=== PATIENT | female | born 1990 | race Hispanic/Latino ===

== ENCOUNTER 2017-06-14 06:46 | Inpatient (IN) | payer MEDICAID, OTHER ==
[2017-06-14 07:26] VITALS: BMI 49.3
[2017-06-14] MEDS ORDERED: Lactated Ringer's 1,000 ML IV ONE (08:00)
[2017-06-14 09:13] LABS: BASO % 0.3 % (0.0-2.0); EOS % 0.5 % (0.0-4.0); HEMATOCRIT 40.2 % (34.0-47.0); LYMPH # 2.1 K/uL (1.0-4.3); LYMPH % 23.8 % (20.0-40.0); MEAN CORPUSCULAR HGB CONC 32.8 g/dL (33.0-37.0); MEAN PLATELET VOLUME 8.4 fl (7.2-11.7); MONO # 0.7 K/uL (0.0-0.8); MONO % 7.7 % (0.0-10.0); NEUT # 5.9 K/uL (1.8-7.0); NEUT % 67.7 % (50.0-75.0); NRBC % 0.1 % (0.0-0.0); RED CELL DISTRIBUTION WIDTH 12.8 % (11.5-14.5); WHITE BLOOD COUNT 8.7 K/uL (4.8-10.8)
[2017-06-14 09:21] LABS: MEAN CELL VOLUME 94.6 fl (81.0-99.0)
[2017-06-14] MEDS: Lactated Ringer's 1,000 ML IV SCH ×2 (09:40→16:25)
[2017-06-14] MEDS ORDERED: Lidocaine 2% Inj (20ml) ONE (15:05)
[2017-06-14] MEDS ORDERED: Lidocaine 2% PF (10 ml) Amp ONE (15:07)
[2017-06-14] MEDS ORDERED: Nalbuphine 20 mg/ml Inj (1 ml) IVP PRN (15:59)
[2017-06-14] MEDS ORDERED: Oxytocin 30 units/LR 500ML 30 U/500 ML BAG IV ONE ×2 (17:49→19:33)
[2017-06-14] MEDS ORDERED: Oxycodone/Acetaminophen 5/325 mg Tab PO PRN ×2 (18:32)
--- NOTE | 2017-06-14 19:05 | OBADHP ---
Datetime: 06/14/2017 18:43 Admit Comment, IP Provider: iup term srom in labor uneventful course admit for delivery Pelvic Type - PN: Adequate Extremities - PN: Normal Abdomen - PN: Normal Back - PN: Normal Breast - PN: Normal Lungs - PN: Normal Heart - PN: Normal Thyroid - PN: Normal Neurologic - PN: Normal HEENT - PN: Normal General - PN: Normal Presentation-Admit: Vertex FHR - Baseline A Provider: 140 Gestation - Est Wks by US: 38+ Pool Provider: Positive IP Chief Complaint: Uterine contractions NICHD Variability Prov Fetus A: Moderate 6-25bpm NICHD Accel Fetus A IP Provider: 10X10 FHR Category Provider Fetus A: Category I NICHD Decel Fetus A IP Provider: None Dilatation, Provider: 3-4 Effacement, Provider: 75% Station, Provider: -1 Genitourinary Exam: Normal DTRs - PN: Normal EGA AdmitDate IP: 38.6 IP Adm Impression: Term, intrauterine ; Ruptured Membranes IP Admit Plan: Admit to unit; Initiate labor protocol
[2017-06-15] MEDS ORDERED: Oxycodone/Acetaminophen 5/325 mg Tab PO PRN ×2 (04:14)
[2017-06-15 07:46] LABS: HEMATOCRIT 34.2 % (34.0-47.0); MEAN CELL VOLUME 94.6 fl (81.0-99.0); MEAN CORPUSCULAR HEMOGLOBIN 30.9 pg (27.0-31.0); MEAN CORPUSCULAR HGB CONC 32.6 g/dL (33.0-37.0); RED CELL DISTRIBUTION WIDTH 12.7 % (11.5-14.5); WHITE BLOOD COUNT 13.4 K/uL (4.8-10.8)
[2017-06-15] MEDS: Prenatal Multivit/Folic Acid/Iron Tab PO SCH (08:24)
[2017-06-15] MEDS ORDERED: Prenatal Multivit/Folic Acid/Iron Tab PO SCH (09:00)
--- NOTE | 2017-06-15 13:37 | OBPPN ---
Datetime: 06/15/2017 13:32 PP Pain Prov: Within normal limits PP Nausea Prov: Denies PP Flatus Prov: Yes PP BM Prov: No PP Breasts Prov: Normal PP Heart Prov: Normal PP Lungs Prov: Normal PP Abdomen/Uterus Prov: Normal PP Lochia Prov: Normal PP Vulva/Perineum Prov: Normal PP CVA Tenderness Prov: Normal PP Extremities Prov: Normal PP Progress Prov: Normal PP Impression Prov: Normal progression PP Plan Prov: Continue present management PP Progress Note Prov: stable ppd1 continue present care,may shower,regular diet IP PP Procedures: None
[2017-06-16 08:19] LABS: HEMATOCRIT 37.7 % (34.0-47.0); MEAN CELL VOLUME 94.6 fl (81.0-99.0); MEAN CORPUSCULAR HEMOGLOBIN 31.9 pg (27.0-31.0); MEAN CORPUSCULAR HGB CONC 33.7 g/dL (33.0-37.0); RED CELL DISTRIBUTION WIDTH 12.9 % (11.5-14.5); WHITE BLOOD COUNT 9.2 K/uL (4.8-10.8)
[2017-06-16] MEDS: Prenatal Multivit/Folic Acid/Iron Tab PO SCH (09:26)
--- NOTE | 2017-06-16 10:48 | OBPPN ---
Datetime: 06/16/2017 10:42 PP Pain Prov: Within normal limits PP Pain Prov comment: No SOB, chest pains or leg pains PP Nausea Prov: Denies PP Flatus Prov: No PP Breasts Prov: Normal PP Lungs Prov: Normal PP Abdomen/Uterus Prov: Abnormal PP Lochia Prov: Normal PP CVA Tenderness Prov: Normal PP Extremities Prov: Abnormal PP C/S Incision Prov: Not Applicable PP Progress Prov: Not Applicable PP Comments Phys Exam Prov: breast not engorged, NT, Abd soft not distended fundus firm below the um b. NT Ext mild edema bilaterally but no calf tenderness Skin changes from eczema. PP Impression Prov: Normal progression PP Plan Prov: Discharge PP Progress Note Prov: D/c home and appt to see dr Garvin in 4-6 wks continue PP care pelvic and bed r est IP PP Procedures: None Vital Signs Provider PP: Reviewed
--- NOTE | 2017-06-16 10:49 | OBDCSUM ---
Datetime: 06/16/2017 10:47 Discharged to, Provider: Home Follow up at, Provider: dr. RICHARDSON Disch Instr Activity: Bedrest; May be up to bathroom; May be up for meals; May Shower Disch Instr Diet: Regular Discharge Instructions, Provider: Routine instructions given Discharge Diagnosis, Provider: Term Delivered Discharge Time: 06/16/2017 10:47 Follow up in weeks, Provider: 4-6 WKS Disch Referrals: None Contraception discussed, Prov: Yes Disch Activity Restrictions: No exercising; No lifting; No driving; Minimize walking; Minimize stair -climbing; No sexual activity; Nothing in vagina - [place], tampons, douche Discharge Comment, Provider: CONTINUE PP CARE PELVIC AND BED REST AND CONTINUE pnc VIT AND IRON Contraception after Delivery: Undecided
[2017-06-16 19:48] VITALS: BP 130/76; PULSE 85; RESP 20; TEMP 98.9; O2SAT 97
== END 2017-06-16 15:40 | disposition home or self-care (01) | DRG 373 ==
LOC: H.EROB2 06:46 → H.L&D 07:26 → H.OB/GYN 20:51
PROVIDERS: ADMIT Specialist; ATTEND Specialist
PROC: 10E0XZZ Delivery of Products of Conception, External Approach (ICD-10-PCS; principal; 2017-06-14)
PROC: 4A1HXCZ Monitoring of Products of Conception, Cardiac Rate, External Approach (ICD-10-PCS; 2017-06-14)
DX: O80 Encounter for full-term uncomplicated delivery (principal); Z37.0 Single live birth; Z3A.38 38 weeks gestation of pregnancy

== ENCOUNTER 2018-01-11 02:06 | Inpatient (IN) | payer MEDICAID, OTHER ==
[2018-01-11 02:06] VITALS: BMI 49.3
[2018-01-11 03:27] LABS: BASO % 0.3 % (0.0-2.0); EOS % 0.4 % (0.0-4.0); HEMOGLOBIN 12.9 g/dL (12.0-16.0); LYMPH % 26.1 % (20.0-40.0); MEAN CELL VOLUME 90.7 fl (81.0-99.0); MEAN CORPUSCULAR HEMOGLOBIN 31.9 pg (27.0-31.0); MEAN CORPUSCULAR HGB CONC 35.1 g/dL (33.0-37.0); MEAN PLATELET VOLUME 7.9 fl (7.2-11.7); MONO # 0.6 K/uL (0.0-0.8); MONO % 8.1 % (0.0-10.0); NEUT # 5.1 K/uL (1.8-7.0); NEUT % 65.1 % (50.0-75.0); NRBC % 0.1 % (0.0-0.0); RBC 4.06 Mil/uL (3.80-5.20); RED CELL DISTRIBUTION WIDTH 11.5 % (11.5-14.5); WHITE BLOOD COUNT 7.8 K/uL (4.8-10.8)
[2018-01-11 03:33] LABS: ALBUMIN 3.9 g/dL (3.5-5.0); ALT/SGPT 32 U/L (9-52); AST/SGOT 32 U/L (14-36); BLOOD UREA NITROGEN 11 mg/dl (7-17); CALCIUM 9.2 mg/dL (8.4-10.2); GFR AFRICAN-AMERICAN > 60; GFR NON-AFRICAN AMERICAN > 60
[2018-01-11 03:45] LABS: BARBITURATES, UR NEGATIVE (NEGATIVE); BENZODIAZEPINES, UR NEGATIVE (NEGATIVE); OPIATES, UR NEGATIVE (NEGATIVE); PHENCYCLIDINE, UR NEGATIVE (NEGATIVE)
--- NOTE | 2018-01-11 03:49 | ED PDOC ---
HPI: Back Time Seen by Provider: 01/11/18 02:29 Chief Complaint (Nursing): Back Pain Chief Complaint (Provider): right flank pain History Per: Patient History/Exam Limitations: no limitations Onset/Duration Of Symptoms: Hrs (x2), Sudden Onset Current Symptoms Are (Timing): Still Present Quality Of Discomfort: Sharp Additional Complaint(s): Lorraine Rice is a 27 year old female with a past medical history of psoriasis, lipoma, and pilonidal abscess, who is presenting to the ER with complaints of sudden onset, sharp, non-radiating right flank pain, onset at 1 am this morning while patient was sleeping. Patient states that she fekt fine when she went to bed last night but awoke with the pain. She reports that the pain is worsened with certain movements of the trunk and notes associated nausea. Patient denies any vomiting, diarrhea, or urinary symptoms. PMD: Dr. Toño Lynn Past Medical History Reviewed: Historical Data, Nursing Documentation, Vital Signs Vital Signs: Last Vital Signs Temp 98.3 F 01/11/18 02:29 Pulse 79 01/11/18 02:29 Resp 18 01/11/18 02:29 BP 119/69 01/11/18 02:29 Pulse Ox 99 01/11/18 02:29 - Medical History PMH: Sleep Apnea Denies: Depression, Diabetes, HTN, Chronic Kidney Disease Other PMH: psoriasis, pilonidal abscess, lipoma - Surgical History Surgical History: No Surg Hx - Family History Family History: States: Unknown Family Hx - Social History Current smoker - smoking cessation education provided: No Alcohol: Occasional Drugs: Denies - Home Medications Home Medications: Ambulatory Orders Medication Instructions Recorded Pantoprazole Sodium [Protonix] 40 mg PO DAILY #14 ect 01/16/18 oxyCODONE/Acetaminophen [Percocet 1 tab PO Q4 PRN #14 tab 01/16/18 5/325 mg Tab] - Allergies Allergies/Adverse Reactions: Allergies Allergy/AdvReac Type Severity Reaction Status Date / Time No Known Allergies Allergy Verified 01/15/18 11:54 Review of Systems ROS Statement: Except As Marked, All Systems Reviewed And Found Negative Gastrointestinal: Positive for: Nausea. Negative for: Vomiting, Diarrhea Genitourinary Female: Negative for: Other (urinary symptoms) Musculoskeletal: Positive for: Back Pain (right flank) Skin: Positive for: Rash (from psoriasis) Physical Exam - Reviewed Nursing Documentation Reviewed: Yes Vital Signs Reviewed: Yes - Physical Exam Appears: Positive for: Uncomfortable, In Acute Distress (painful) Head Exam: Positive for: ATRAUMATIC, NORMOCEPHALIC Skin: Positive for: Warm, Dry, Rash (diffuse psoriatic lesions) Eye Exam: Positive for: EOMI, PERRL ENT: Negative for: Pharyngeal Erythema, Tonsillar Exudate Neck: Positive for: Painless ROM Cardiovascular/Chest: Positive for: Regular Rate, Rhythm. Negative for: Murmur Respiratory: Positive for: Normal Breath Sounds. Negative for: Wheezing Gastrointestinal/Abdominal: Positive for: Normal Exam, Soft, Other (obese). Negative for: Tenderness, Mass, Distended, Guarding, Rebound Back: Negative for: L CVA Tenderness, R CVA Tenderness, Other (bony tenderness to palpation) Extremity: Positive for: Normal ROM. Negative for: Deformity Lymphatic: Negative for: Adenopathy Neurologic/Psych: Positive for: Alert. Negative for: Motor/Sensory Deficits - Laboratory Results Result Diagrams: 01/13/18 08:00 01/16/18 05:30 Urine dip results: Positive for: Blood (trace lysed). Negative for: Leukocyte Esterase, Nitrate, Ketones, Glucose, Bilirubin, Protein - ECG O2 Sat by Pulse Oximetry: 99 (RA) Pulse Ox Interpretation: Normal Medical Decision Making Medical Decision Making: Time: 2:47 Impression: right flank pain, vomiting Differentials (including but not limited to): renal polyp, pyelonephritis, musculoskeletal strain, gall bladder disease, PE Plan: --CT Abd & Pelvis --Alcohol Serum --CMP --Drug Screen --Magnesium --Phosphorous --ED Urine --ED Urine Dipstick --CBC --D Dimer --Toradol 30 mg IV --Zofran 4 mg PO EXAM: CT Abdomen and Pelvis Without Intravenous Contrast CLINICAL HISTORY: 27 years old, female; Pain; Abdominal pain; Flank; Right; Additional info: Right flank pain TECHNIQUE: Axial computed tomography images of the abdomen and pelvis without intravenous contrast. All CT scans at this facility use one or more dose reduction techniques, viz.: automated exposure control; ma/kV adjustment per patient size (including targeted exams where dose is matched to indication; i.e. head); or iterative reconstruction technique. 679 images are submitted.Sagittal , axial and coronal MPR reformatted images are submitted. COMPARISON: PELVIS/TRANSVAG US 2015-11-18 15:45 FINDINGS: Lung bases: There is bibasilar atelectasis. Mediastinum: Small hiatal hernia. ABDOMEN: Liver: Unremarkable. Gallbladder and bile ducts: Partially distended gallbladder which is folded on itself. Pancreas: Unremarkable. No ductal dilation. Spleen: Unremarkable. No splenomegaly. Adrenals: Unremarkable. No mass. Kidneys and ureters: Unremarkable. No obstructing stones. No hydronephrosis. Stomach and bowel: There are dilated mid small bowel loops with transition in the mid lower abdomen below the umbilicus seen on image 127 series 3 suspicious for small bowel obstruction. Duodenal diverticulum. Moderate amount of stool in the colon. Rectosigmoid distention with stool and colonic thickening.Correlation with patient's clinical history of constipation versus stool related colitis versus under distention is recommended. Diverticulosis. Appendix: Suboptimally seen normal appendix. PELVIS: Bladder: Partially decompressed bladder with bladder wall thickening. Correlation with urinalysis is recommended only if clinical cystitis is suspected. Reproductive: High riding ovaries. Uterus is seen. ABDOMEN and PELVIS: Intraperitoneal space: Unremarkable. No free air. No significant fluid collection. Bones/joints: Right sided thoracic and left-sided lower thoracic scoliosis. No acute fracture. No dislocation. Soft tissues: There is a fat-containing umbilical hernia. Vasculature: Unremarkable. No abdominal aortic aneurysm. Lymph nodes: Unremarkable. No enlarged lymph nodes. Other findings: CRITICAL RESULT: The study was personally discussed on the telephone with Kareen Le on 01/11/2018 4:37 AM EDT. The results were understood and acknowledged. IMPRESSION: There are dilated mid small bowel loops with transition in the mid lower abdomen below the umbilicus seen on image 127 series 3 suspicious for small bowel obstruction. Thank you for allowing us to participate in the care of your patient. Dictated and Authenticated by: Grey Lopez MD 01/11/2018 4:39 AM Eastern Time ([place] & [place]) On reeval pt reports pain to RIGHT flank improved, but has RUQ ttp on exam. And reports that the RUQ palpation suddenly made her stomach "feel weird." Will consult Surgery and place in observation for SBO. Scribe Attestation: Documented by Valerie Carvalho acting as a scribe for Kareen Lopez MD. Scribe Attestation: All medical record entries made by the Scribe were at my direction and personally dictated by me. I have reviewed the chart and agree that the record accurately reflects my personal performance of the history, physical exam, medical decision making, and the department course for this patient. I have also personally directed, reviewed, and agree with the discharge instructions and disposition. Disposition - Clinical Impression Clinical Impression: SBO (small bowel obstruction) Discussed With DrMp: Fátima Stratton Doctor Will See Patient In The: Hospital Counseled Patient/Family Regarding: Studies Performed, Diagnosis - Disposition Disposition Time: 06:00 Condition: FAIR - Pt Status Changed To: Hospital Disposition Of: Observation - POA Present On Arrival: None
--- NOTE | 2018-01-11 05:53 | CP.PCM.CON ---
History of Present Illness - History of Present Illness History of Present Illness: General Surgery Consult Note for Dr. Narvaez Reason for Consult: Right flank/RUQ pain 27 F with PMH of YOANA, psoriaisis, depression/anxiety presents to [facility] for complaint of Right flank/RUQ pain. Patient was seen and evaluated in the ED. Win states that the pain began around 1 am, which woke her up from sleep. Patient reports that she ate dinner last night and felt fine before going to bed. She states that she has never has had pain like this before. She reports sudden onset. Upon arrival to ED, she states that she had an episode of nausea/ vomiting (non-bloody, non-bilious emesis). She rates that pain as severe. She describes pain as constant and sharp located in right flank radiating to RUQ. She reports that certain movements and palpatino exacerbates her pain while nothing alleviates it. Denies recent illness or sick contacts. Admits to chills. Denies suicidal/homicial ideations, fever/chills, palpitations, chest pain, SOB, diarrhea, constipation, or urinary symptoms. PMD: Dr. Lynn PMH: YOANA, psoriaisis, depression/anxiety Meds: Aleshia Allergy: NKDA PSH: lipoma removal FH: non-contributory Social: denies tobacco/EtOH/illicit drug use, lives with and child Review of Systems - Review of Systems All systems: reviewed and no additional remarkable complaints except (12 point ROS negative unless otherwise stated as per HPI) Past Patient History - Past Medical History & Family History Past Medical History?: Yes - Past Social History Alcohol: Occasional Drugs: Denies - CARDIAC Hx Hypertension: No - PULMONARY Hx Sleep Apnea: Yes - NEUROLOGICAL Hx Neurological Disorder: No - HEENT Other/Comment: Use Eyeglasses for reading - RENAL Hx Chronic Kidney Disease: No - ENDOCRINE/METABOLIC Hx Endocrine Disorders: Yes (thyroid issue, no meds) - HEMATOLOGICAL/ONCOLOGICAL Hx Blood Disorders: No - INTEGUMENTARY Hx Psoriasis: Yes - MUSCULOSKELETAL/RHEUMATOLOGICAL Hx Musculoskeletal Disorders: No Hx Falls: No - GASTROINTESTINAL Hx Gastrointestinal Disorders: No - GENITOURINARY/GYNECOLOGICAL Hx Genitourinary Disorders: No - PSYCHIATRIC Hx Depression: No - SURGICAL HISTORY Hx Surgeries: Yes (lipoma removal from head) Other/Comment: Removal of cyst on the tailbone X2 - ANESTHESIA Hx Anesthesia: Yes Meds Allergies/Adverse Reactions: Allergies Allergy/AdvReac Type Severity Reaction Status Date / Time No Known Allergies Allergy Verified 06/14/17 07:25 Physical Exam - Constitutional Appears: Non-toxic, No Acute Distress - Head Exam Head Exam: ATRAUMATIC, NORMOCEPHALIC - Eye Exam Eye Exam: EOMI, Normal appearance Pupil Exam: PERRL - ENT Exam ENT Exam: Mucous Membranes Moist - Neck Exam Neck exam: Positive for: Full Rom. Negative for: Tenderness - Respiratory Exam Respiratory Exam: NORMAL BREATHING PATTERN - Cardiovascular Exam Cardiovascular Exam: REGULAR RHYTHM - GI/Abdominal Exam GI & Abdominal Exam: Normal Bowel Sounds, Soft, Tenderness (RUQ). absent: Distended, Firm, Guarding, Hernia, Rebound, Rigid - Extremities Exam Extremities exam: Positive for: normal capillary refill, pedal pulses present. Negative for: calf tenderness - Back Exam Back exam: absent: CVA tenderness (L), CVA tenderness (R) - Neurological Exam Neurological exam: Alert, CN II-XII Intact, Oriented x3 - Psychiatric Exam Psychiatric exam: Normal Affect, Normal Mood - Skin Skin Exam: Dry, Intact, Normal Color, Warm Results - Vital Signs Recent Vital Signs: Last Vital Signs Temp 98.3 F 01/11/18 02:29 Pulse 79 01/11/18 02:29 Resp 18 01/11/18 02:29 BP 119/69 01/11/18 02:29 Pulse Ox 99 01/11/18 04:50 - Labs Result Diagrams: 01/11/18 03:00 01/11/18 03:00 Labs: Laboratory Results - last 24 hr 01/11/18 01/11/18 01/11/18 03:00 03:00 03:00 WBC 7.8 RBC 4.06 Hgb 12.9 Hct 36.8 MCV 90.7 D MCH 31.9 H MCHC 35.1 RDW 11.5 Plt Count 260 MPV 7.9 Neut % (Auto) 65.1 Lymph % (Auto) 26.1 [place] % (Auto) 8.1 Eos % (Auto) 0.4 Baso % (Auto) 0.3 Neut # (Auto) 5.1 Lymph # (Auto) 2.0 [place] # (Auto) 0.6 Eos # (Auto) 0.0 Baso # (Auto) 0.0 D-Dimer, Quantitative 247 H Sodium 142 Potassium 3.8 Chloride 101 Carbon Dioxide 26 Anion Gap 19 BUN 11 Creatinine 0.8 Est GFR ( Amer) > 60 Est GFR (Non-Af Amer) > 60 Random Glucose 125 H Calcium 9.2 Phosphorus 3.1 Magnesium 1.8 Total Bilirubin 0.5 AST 32 ALT 32 Alkaline Phosphatase 81 Total Protein 7.8 Albumin 3.9 Globulin 3.9 Albumin/Globulin Ratio 1.0 Urine Opiates Screen Urine Methadone Screen Ur Barbiturates Screen Ur Phencyclidine Scrn Ur Amphetamines Screen U Benzodiazepines Scrn U Oth Cocaine Metabols U Cannabinoids Screen Alcohol, Quantitative < 10 01/11/18 03:00 WBC RBC Hgb Hct MCV MCH MCHC RDW Plt Count MPV Neut % (Auto) Lymph % (Auto) [place] % (Auto) Eos % (Auto) Baso % (Auto) Neut # (Auto) Lymph # (Auto) [place] # (Auto) Eos # (Auto) Baso # (Auto) D-Dimer, Quantitative Sodium Potassium Chloride Carbon Dioxide Anion Gap BUN Creatinine Est GFR ( Amer) Est GFR (Non-Af Amer) Random Glucose Calcium Phosphorus Magnesium Total Bilirubin AST ALT Alkaline Phosphatase Total Protein Albumin Globulin Albumin/Globulin Ratio Urine Opiates Screen Negative Urine Methadone Screen Negative Ur Barbiturates Screen Negative Ur Phencyclidine Scrn Negative Ur Amphetamines Screen Negative U Benzodiazepines Scrn Negative U Oth Cocaine Metabols Negative U Cannabinoids Screen Negative Alcohol, Quantitative Assessment & Plan - Assessment and Plan (Free Text) Assessment: 27 F with right flank/RUQ abdominal pain; CT abd/pelvis demonstrates suspicion for SBO Plan: -NPO -IV fluids -f/u RUQ US -f/u Renal US -Analgesics/Anti-emetics PRN -Patient refuses NGT at this time -Recommend Psych consult -Further recommendations as per Dr. Brice Deleon PGY1
[2018-01-11 06:37] LABS: SQUAMOUS EPITHIAL 3 /hpf (0-5); URINE BACTERIA RARE (<OCC); URINE BILIRUBIN NEGATIVE (NEGATIVE); URINE BLOOD SMALL (NEGATIVE); URINE CLARITY SLIGHTY-CLOUDY (Clear); URINE COLOR YELLOW (YELLOW); URINE GLUCOSE (UA) NEG (Normal); URINE LEUKOCYTE ESTERASE NEG Leu/uL (Negative); URINE PROTEIN 30 mg/dL (NEGATIVE); URINE UROBILINOGEN 0.2-1.0 mg/dL (0.2-1.0)
[2018-01-11] MEDS ORDERED: HYDROmorphone 0.5 mg/0.5 ml ISec ONE (08:00)
[2018-01-11] MEDS: Sodium Chloride 0.9% 1,000 ML IV SCH ×3 (08:00→19:01)
--- NOTE | 2018-01-11 10:38 | CT ---
PROCEDURE: CT Abdomen and Pelvis without intravenous contrast HISTORY: RIGHT FLANK PAIN COMPARISON: None. TECHNIQUE: Contiguous images were obtained from the domes of the diaphragms to the upper thighs without the administration of intravenous contrast. Oral contrast was not administered. Radiation dose: Total exam DLP = 1154.3 mGy-cm. This CT exam was performed using one or more of the following dose reduction techniques: Automated exposure control, adjustment of the mA and/or kV according to patient size, and/or use of iterative reconstruction technique. FINDINGS: LOWER THORAX: Unremarkable. LIVER: Unremarkable. No gross lesion or ductal dilatation. GALLBLADDER AND BILE DUCTS: Unremarkable. PANCREAS: Unremarkable. No gross lesion or ductal dilatation. SPLEEN: Unremarkable. ADRENALS: Unremarkable. No mass. KIDNEYS AND URETERS: Unremarkable. No hydronephrosis. No solid mass. VASCULATURE: Unremarkable. No aortic aneurysm. BOWEL: Unremarkable. No obstruction. No gross mural thickening. APPENDIX: Unremarkable. Normal appendix. PERITONEUM: Unremarkable. No free fluid. No free air. LYMPH NODES: Unremarkable. No enlarged lymph nodes. BLADDER: Unremarkable. REPRODUCTIVE: Unremarkable. BONES: No acute fracture. OTHER FINDINGS: None. IMPRESSION: No acute abdominal pelvic pathology. There is no evidence of small-bowel obstruction. Small bowel loops are nondilated and are normal in caliber. Findings are discordant with the preliminary interpretation provided by teleradiology.
--- NOTE | 2018-01-11 11:12 | US ---
HISTORY: RUQ pain COMPARISON: Correlations made to CT scan of the abdomen pelvis performed approximately 7 hours prior. TECHNIQUE: Sonographic evaluation of the right upper quadrant of the abdomen. FINDINGS: LIVER: Mildly enlarged, measuring 17.1 cm in length. Normal echogenicity of the liver parenchyma. No mass. No intrahepatic bile duct dilatation. GALLBLADDER: Cholelithiasis without gallbladder wall thickening or edema. Sonographic Ramsey's sign was elicited. COMMON BILE DUCT: Measures 4 mm. No stones. No dilatation. PANCREAS: Not well-visualized. AORTA: No aneurysmal dilatation. IVC: Unremarkable. OTHER FINDINGS: None . IMPRESSION: Cholelithiasis without gallbladder wall thickening/ edema or pericholecystic fluid. Sonographic Ramsey's sign was, however, elicited. Findings are equivocal for acute cholecystitis, although recent CT scan of the abdomen pelvis did not reveal gallbladder wall thickening or pericholecystic edema/inflammation. Nuclear medicine HIDA scan can be obtained to further evaluate patency of the cystic duct as clinically warranted. Borderline hepatomegaly.
--- NOTE | 2018-01-11 11:16 | US ---
PROCEDURE: Ultrasound of the Kidneys HISTORY: r flank pain COMPARISON: Correlation is made to CT scan of the abdomen and pelvis performed approximately 7 hours prior. TECHNIQUE: Sonogram of the kidneys. FINDINGS: RIGHT KIDNEY: Measures: 13.4 x 4.6 x 4.8 cm. Normal in size, contour and echogenicity. No stone, solid mass lesion or hydronephrosis visualized. LEFT KIDNEY: Measures: 11.4 x 4.3 x 4.7 cm. Normal in size, contour and echogenicity. No stone, solid mass lesion or hydronephrosis visualized. OTHER FINDINGS: None. IMPRESSION: Unremarkable renal sonogram.
--- NOTE | 2018-01-11 15:09 | CP.PCM.HP ---
History of Present Illness - History of Present Illness History of Present Illness: Cc: Right flank pain A 27 year old female with a pmhx of psoriasis, lipoma, and pilonidal abscess who presented to the ED with complaints of sudden onset of sharp pain to her right flank that woke her up at about 1 am this morning. States the pain is non- radiating, constant and severe with a 8/10 intensity. States she felt fine when she went to bed last night but then woke up with the pain. Reports that pain is worsened with certain movements of her body and sometimes associated nausea. Denies any vomiting, diarrhea, urinary symptoms, fever, headache, dizziness, chest pain or shortness of breath. Present on Admission - Present on Admission Any Indicators Present on Admission: No Review of Systems - Review of Systems All systems: reviewed and no additional remarkable complaints except (as stated) - Constitutional Constitutional: As Per HPI - Cardiovascular Cardiovascular: As Per HPI - Respiratory Respiratory: As Per HPI - Gastrointestinal Gastrointestinal: As Per HPI, Abdominal Pain, Nausea Past Patient History - Infectious Disease Hx of Infectious Diseases: None - Past Medical History & Family History Past Medical History?: Yes Past Family History: Reviewed and not pertinent - Past Social History Smoking Status: Never Smoked - CARDIAC Hx Hypertension: No - PULMONARY Hx Sleep Apnea: Yes - NEUROLOGICAL Hx Neurological Disorder: No - HEENT Hx HEENT Problems: No Other/Comment: Use Eyeglasses for reading - RENAL Hx Chronic Kidney Disease: No - ENDOCRINE/METABOLIC Hx Endocrine Disorders: Yes (thyroid issue, no meds) - HEMATOLOGICAL/ONCOLOGICAL Hx Blood Disorders: No - INTEGUMENTARY Hx Psoriasis: Yes - MUSCULOSKELETAL/RHEUMATOLOGICAL Hx Musculoskeletal Disorders: No Hx Falls: No - GASTROINTESTINAL Hx Gastrointestinal Disorders: No - GENITOURINARY/GYNECOLOGICAL Hx Genitourinary Disorders: No - PSYCHIATRIC Hx Depression: No Hx Substance Use: No - SURGICAL HISTORY Hx Surgeries: Yes (lipoma removal from head) Other/Comment: Removal of cyst on the tailbone X2 - ANESTHESIA Hx Anesthesia: Yes Meds Allergies/Adverse Reactions: Allergies Allergy/AdvReac Type Severity Reaction Status Date / Time No Known Allergies Allergy Verified 06/14/17 07:25 Physical Exam - Constitutional Appears: Well, No Acute Distress - Head Exam Head Exam: ATRAUMATIC, NORMOCEPHALIC - Eye Exam Eye Exam: EOMI, Normal appearance, PERRL Pupil Exam: NORMAL ACCOMODATION - ENT Exam ENT Exam: Mucous Membranes Moist, Normal Exam - Neck Exam Neck exam: Positive for: Normal Inspection - Respiratory Exam Respiratory Exam: Clear to Auscultation Bilateral, NORMAL BREATHING PATTERN - Cardiovascular Exam Cardiovascular Exam: REGULAR RHYTHM, +S1, +S2 - GI/Abdominal Exam GI & Abdominal Exam: Normal Bowel Sounds, Soft - Extremities Exam Extremities exam: Positive for: normal inspection - Back Exam Back exam: NORMAL INSPECTION - Neurological Exam Neurological exam: Alert, CN II-XII Intact, Oriented x3, Reflexes Normal - Psychiatric Exam Psychiatric exam: Normal Affect, Normal Mood - Skin Skin Exam: Normal Color, Warm Results - Vital Signs Recent Vital Signs: Last Vital Signs Temp 97.9 F 01/11/18 10:59 Pulse 72 01/11/18 11:30 Resp 18 01/11/18 11:30 BP 132/78 01/11/18 10:59 Pulse Ox 100 01/11/18 11:30 - Labs Result Diagrams: 01/13/18 08:00 01/14/18 09:05 Labs: Laboratory Results - last 24 hr 01/11/18 01/11/18 01/11/18 03:00 03:00 03:00 WBC 7.8 RBC 4.06 Hgb 12.9 Hct 36.8 MCV 90.7 D MCH 31.9 H MCHC 35.1 RDW 11.5 Plt Count 260 MPV 7.9 Neut % (Auto) 65.1 Lymph % (Auto) 26.1 [place] % (Auto) 8.1 Eos % (Auto) 0.4 Baso % (Auto) 0.3 Neut # (Auto) 5.1 Lymph # (Auto) 2.0 [place] # (Auto) 0.6 Eos # (Auto) 0.0 Baso # (Auto) 0.0 D-Dimer, Quantitative 247 H Sodium 142 Potassium 3.8 Chloride 101 Carbon Dioxide 26 Anion Gap 19 BUN 11 Creatinine 0.8 Est GFR ( Amer) > 60 Est GFR (Non-Af Amer) > 60 Random Glucose 125 H Calcium 9.2 Phosphorus 3.1 Magnesium 1.8 Total Bilirubin 0.5 AST 32 ALT 32 Alkaline Phosphatase 81 Total Protein 7.8 Albumin 3.9 Globulin 3.9 Albumin/Globulin Ratio 1.0 Urine Color Urine Clarity Urine pH Ur Specific [place] Urine Protein Urine Glucose (UA) Urine Ketones Urine Blood Urine Nitrate Urine Bilirubin Urine Urobilinogen Ur Leukocyte Esterase Urine RBC (Auto) Urine Microscopic WBC Ur Squamous Epith Cells Urine Bacteria Urine Opiates Screen Urine Methadone Screen Ur Barbiturates Screen Ur Phencyclidine Scrn Ur Amphetamines Screen U Benzodiazepines Scrn U Oth Cocaine Metabols U Cannabinoids Screen Alcohol, Quantitative < 10 01/11/18 01/11/18 03:00 06:17 WBC RBC Hgb Hct MCV MCH MCHC RDW Plt Count MPV Neut % (Auto) Lymph % (Auto) [place] % (Auto) Eos % (Auto) Baso % (Auto) Neut # (Auto) Lymph # (Auto) [place] # (Auto) Eos # (Auto) Baso # (Auto) D-Dimer, Quantitative Sodium Potassium Chloride Carbon Dioxide Anion Gap BUN Creatinine Est GFR ( Amer) Est GFR (Non-Af Amer) Random Glucose Calcium Phosphorus Magnesium Total Bilirubin AST ALT Alkaline Phosphatase Total Protein Albumin Globulin Albumin/Globulin Ratio Urine Color Yellow Urine Clarity Slighty-cloudy Urine pH 6.0 Ur Specific [place] 1.028 Urine Protein 30 Urine Glucose (UA) Neg Urine Ketones Negative Urine Blood Small Urine Nitrate Negative Urine Bilirubin Negative Urine Urobilinogen 0.2-1.0 Ur Leukocyte Esterase Neg Urine RBC (Auto) 5 H Urine Microscopic WBC 6 H Ur Squamous Epith Cells 3 Urine Bacteria Rare Urine Opiates Screen Negative Urine Methadone Screen Negative Ur Barbiturates Screen Negative Ur Phencyclidine Scrn Negative Ur Amphetamines Screen Negative U Benzodiazepines Scrn Negative U Oth Cocaine Metabols Negative U Cannabinoids Screen Negative Alcohol, Quantitative - Imaging and Cardiology CT Abd/Pelvis Additional comment: PROCEDURE: CT Abdomen and Pelvis without intravenous contrast HISTORY: RIGHT FLANK PAIN COMPARISON: None. TECHNIQUE: Contiguous images were obtained from the domes of the diaphragms to the upper thighs without the administration of intravenous contrast. Oral contrast was not administered. Radiation dose: Total exam DLP = 1154.3 mGy-cm. This CT exam was performed using one or more of the following dose reduction techniques: Automated exposure control, adjustment of the mA and/or kV according to patient size, and/or use of iterative reconstruction technique. FINDINGS: LOWER THORAX: Unremarkable. LIVER: Unremarkable. No gross lesion or ductal dilatation. GALLBLADDER AND BILE DUCTS: Unremarkable. PANCREAS: Unremarkable. No gross lesion or ductal dilatation. SPLEEN: Unremarkable. ADRENALS: Unremarkable. No mass. KIDNEYS AND URETERS: Unremarkable. No hydronephrosis. No solid mass. VASCULATURE: Unremarkable. No aortic aneurysm. BOWEL: Unremarkable. No obstruction. No gross mural thickening. APPENDIX: Unremarkable. Normal appendix. PERITONEUM: Unremarkable. No free fluid. No free air. LYMPH NODES: Unremarkable. No enlarged lymph nodes. BLADDER: Unremarkable. REPRODUCTIVE: Unremarkable. BONES: No acute fracture. OTHER FINDINGS: None. IMPRESSION: No acute abdominal pelvic pathology. There is no evidence of small-bowel obstruction. Small bowel loops are nondilated and are normal in caliber. Findings are discordant with the preliminary interpretation provided by teleradiology. Assessment & Plan - Assessment and Plan (Free Text) Assessment: 27 year old female with right flank pain Plan: NPO IVF renal us gallbladder us pain medication surgery consult GI prophylaxis elevated LFTs, trend labs
[2018-01-12] MEDS: Sodium Chloride 0.9% 1,000 ML IV SCH ×2 (01:27→06:42)
--- NOTE | 2018-01-12 08:08 | CP.PCM.PN ---
Subjective - Date & Time of Evaluation Date of Evaluation: 01/12/18 Time of Evaluation: 08:06 - Subjective Subjective: SURGERY NOTE FOR DR. INIGUEZ 27F seen and examined at bedside. Continue to complain of RUQ pain that she has never had before. Denies nausea/vomiting overnight but did have those symptoms while in the ER. Tolerating liquid diet. Objective - Vital Signs/Intake and Output Vital Signs (last 24 hours): Temp Pulse Resp BP Pulse Ox 98.7 F 81 20 121/83 99 01/12/18 00:36 01/12/18 00:36 01/12/18 00:36 01/12/18 00:36 01/12/18 00:36 - Medications Medications: Current Medications Hydromorphone HCl (Dilaudid) 0.5 mg IVP Q3 PRN PRN Reason: Pain, severe (8-10) Ondansetron HCl (Zofran Odt) 8 mg PO Q8H PRN PRN Reason: Nausea/Vomiting Pantoprazole Sodium (Protonix Inj) 40 mg IVP DAILY [facility] Last Admin: 01/11/18 08:48 Dose: 40 mg - Labs Labs: 01/11/18 03:00 01/11/18 03:00 - Constitutional Appears: Well, Non-toxic, No Acute Distress, Other (obese) - Respiratory Exam Respiratory Exam: Clear to Ausculation Bilateral, NORMAL BREATHING PATTERN - Cardiovascular Exam Cardiovascular Exam: REGULAR RHYTHM, +S1, +S2 - GI/Abdominal Exam GI & Abdominal Exam: Soft, Tenderness (RUQ tenderness). absent: Distended, Firm , Guarding, Rigid, Rebound Additional comments: Positive murphys sign - Neurological Exam Neurological Exam: Alert, Awake - Skin Skin Exam: Dry, Intact, Normal Color, Warm Assessment and Plan - Assessment and Plan (Free Text) Assessment: 27F with cholecystitis Plan: pain control fluids HIDA Will need gallbladder removed Further recs per Dr. Brice De Leon, PGY2
[2018-01-12 09:54] LABS: HEMOGLOBIN 13.6 g/dL (12.0-16.0); MEAN CELL VOLUME 91.1 fl (81.0-99.0); MEAN CORPUSCULAR HEMOGLOBIN 30.9 pg (27.0-31.0); MEAN CORPUSCULAR HGB CONC 33.9 g/dL (33.0-37.0); RBC 4.4 Mil/uL (3.80-5.20); RED CELL DISTRIBUTION WIDTH 11.6 % (11.5-14.5); WHITE BLOOD COUNT 3.7 K/uL (4.8-10.8)
[2018-01-12 10:12] LABS: PROTHROMBIN TIME 12.7 Seconds (9.8-13.1)
[2018-01-12 10:13] LABS: INR 1.1 (0.9-1.2); PARTIAL THROMBOPLASTIN TIME 29.7 Seconds (25.6-37.1)
[2018-01-12 10:22] LABS: ALB/GLOB RATIO 0.9 (1.0-2.1); ALBUMIN 3.5 g/dL (3.5-5.0); ALT/SGPT 159 U/L (9-52); AST/SGOT 177 U/L (14-36); BLOOD UREA NITROGEN 6 mg/dl (7-17); CALCIUM 8.9 mg/dL (8.4-10.2); GFR AFRICAN-AMERICAN > 60; GFR NON-AFRICAN AMERICAN > 60
[2018-01-12] MEDS ORDERED: Sodium Chloride 0.9% 1,000 ML IV SCH ×2 (23:00)
--- NOTE | 2018-01-12 23:06 | CP.PCM.PN ---
Subjective - Date & Time of Evaluation Date of Evaluation: 01/12/18 Time of Evaluation: 09:35 - Subjective Subjective: Still complains of RUQ pain, states she has never had this kind of pain before Denies nausea, vomiting, fever or chills Objective - Vital Signs/Intake and Output Vital Signs (last 24 hours): Temp Pulse Resp BP Pulse Ox 98.2 F 58 L 18 117/78 100 01/12/18 16:10 01/12/18 16:10 01/12/18 16:10 01/12/18 16:10 01/12/18 16:10 - Medications Medications: Current Medications Hydromorphone HCl (Dilaudid) 0.5 mg IVP Q3 PRN PRN Reason: Pain, severe (8-10) Sodium Chloride (Sodium Chloride 0.9%) 1,000 mls @ 175 mls/hr IV .[facility]5H43M [facility] Stop: 01/13/18 09:37 Ondansetron HCl (Zofran Odt) 8 mg PO Q8H PRN PRN Reason: Nausea/Vomiting Pantoprazole Sodium (Protonix Inj) 40 mg IVP DAILY [facility] Last Admin: 01/12/18 08:58 Dose: 40 mg - Labs Labs: 01/12/18 08:29 01/12/18 08:29 PT 12.7 Seconds (9.8-13.1) 01/12/18 08:29 INR 1.1 (0.9-1.2) 01/12/18 08:29 APTT 29.7 Seconds (25.6-37.1) 01/12/18 08:29 - Constitutional Appears: Well, No Acute Distress - Head Exam Head Exam: ATRAUMATIC, NORMOCEPHALIC - Respiratory Exam Respiratory Exam: Clear to Ausculation Bilateral, NORMAL BREATHING PATTERN - Cardiovascular Exam Cardiovascular Exam: REGULAR RHYTHM, +S1, +S2 - GI/Abdominal Exam GI & Abdominal Exam: Soft, Normal Bowel Sounds - Neurological Exam Neurological Exam: Alert, Oriented x3 - Skin Skin Exam: Normal Color, Warm Assessment and Plan - Assessment and Plan (Free Text) Assessment: 27 year old with abdominal pain Plan: Cholelithiasis on gallbladder us NPO IVF surgery on board possible lap dee dee trend labs
[2018-01-13 08:46] LABS: BASO % 0.7 % (0.0-2.0); EOS % 0.8 % (0.0-4.0); HEMOGLOBIN 13.4 g/dL (12.0-16.0); LYMPH # 1.2 K/uL (1.0-4.3); LYMPH % 22.6 % (20.0-40.0); MEAN CELL VOLUME 89.7 fl (81.0-99.0); MEAN CORPUSCULAR HGB CONC 34.5 g/dL (33.0-37.0); MEAN PLATELET VOLUME 8.3 fl (7.2-11.7); MONO # 0.4 K/uL (0.0-0.8); MONO % 8.2 % (0.0-10.0); NEUT # 3.5 K/uL (1.8-7.0); NEUT % 67.7 % (50.0-75.0); NRBC % 0.2 % (0.0-0.0); RBC 4.34 Mil/uL (3.80-5.20); RED CELL DISTRIBUTION WIDTH 11.4 % (11.5-14.5); WHITE BLOOD COUNT 5.2 K/uL (4.8-10.8)
[2018-01-13 08:57] LABS: ALBUMIN 4.2 g/dL (3.5-5.0); ALT/SGPT 246 U/L (9-52); AST/SGOT 267 U/L (14-36); BLOOD UREA NITROGEN 9 mg/dl (7-17); CALCIUM 9.6 mg/dL (8.4-10.2); GFR AFRICAN-AMERICAN > 60; GFR NON-AFRICAN AMERICAN > 60
--- NOTE | 2018-01-13 09:33 | PN ---
DATE: 01/11/2018 HISTORY OF PRESENT ILLNESS: Patient is seen on the floor in 564 at [place]. She is admitted with abdominal pain. Vital signs are normal with temperature of 98, pulse of 65, blood pressure normal. Her white count is normal. Hemoglobin is normal. SMA-18 showed glucose slightly elevated. Urine otherwise unremarkable, screen is unremarkable. There is a CAT scan reported by Dr. Henry, no evidence of small bowel obstruction. There is some dilated loops of bowel, but it is unremarkable. from the initial report, review of the films myself and I believe there is small bowel obstruction. Kidneys are unremarkable. There is a gallbladder ultrasound, I also reviewed, showing cholelithiasis without bladder thickening. There was some tenderness. 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 She is a 27-year-old woman who was admitted to the emergency room with a history of psoriasis, lipoma, and a pilonidal abscess. There is no vomiting. Does have back pain and flank pain. I do not see that history in the report. In any case, admitted mostly for right flank pain without associated symptoms of dysuria, frequency, urgency, nocturia, or hematuria. PHYSICAL EXAMINATION: GENERAL: She is obese, tender. She has a difficult time telling her medical story. ABDOMEN: Soft, nontender. No guarding or rebound. ASSESSMENT AND PLAN: She states she has passed gas, and from my point of view, I have no problem feeding her. Sajan Narvaez MD DT: 01/12/2018 2:58:27
[2018-01-13] MEDS ORDERED: Bupivacaine HCl 0.5% PF (30 ml) Inj ONE (10:32)
[2018-01-13] MEDS ORDERED: Rocuronium 10 mg/ml (5 ml) ONE (10:52)
[2018-01-13] MEDS ORDERED: Propofol 10 mg/ml Inj (20 ML) ONE ×2 (10:52→13:23)
[2018-01-13] MEDS ORDERED: Midazolam 2 MG/2 ML VIAL ONE (10:52)
[2018-01-13] MEDS ORDERED: Lidocaine 4% (Laryng-O-Jet) Kit MM ONE (10:52)
[2018-01-13] MEDS ORDERED: Lidocaine Hydrochloride 1% 20 ML ONE (11:21)
[2018-01-13] MEDS ORDERED: Lactated Ringer's 1,000 ML IV ONE ×3 (11:30→15:50)
[2018-01-13] MEDS ORDERED: Lidocaine 1% Inj (20ml) IJ ONE (11:45)
[2018-01-13] MEDS ORDERED: ePHEDrine 50 mg/ml Inj ONE (11:51)
[2018-01-13] MEDS ORDERED: Dexamethasone 4 mg/1 ml ONE (12:05)
[2018-01-13] MEDS ORDERED: Neostigmine 1:1000 (1 mg/ml) Inj ONE (12:48)
[2018-01-13] MEDS ORDERED: Oxycodone/Acetaminophen 5/325 mg Tab PO PRN (13:57)
--- NOTE | 2018-01-13 14:00 | PCM.SURG1 ---
Surgeon's Initial Post Op Note - Surgeon's Notes Surgeon: Dr. Polk Veneer Glue Spreader: Evangelist PGY3, Reyna PGY2, Pancho PGY1 Type of Anesthesia: General Endo Anesthesia Administered By: Dr. Gibbons Pre-Operative Diagnosis: Cholelithiasis, biliary colic Operative Findings: see operative report Post-Operative Diagnosis: Cholelithiasis, biliary colic, cholecystitis Operation Performed: Laparoscopic Cholecystectomy Specimen/Specimens Removed: Gallbladder with gallstones Estimated Blood Loss: EBL {In ML}: 15 Blood Products Given: N/A Drains Used: No Drains Post-Op Condition: Good Date of Surgery/Procedure: 01/13/18 Time of Surgery/Procedure: 12:00
[2018-01-13] MEDS ORDERED: Lactated Ringer's 1,000 ML IV SCH (14:15)
[2018-01-13] MEDS ORDERED: Morphine 4 MG/ML VIAL IVP PRN (14:30)
--- NOTE | 2018-01-14 07:52 | CP.PCM.PN ---
Subjective - Date & Time of Evaluation Date of Evaluation: 01/14/18 Time of Evaluation: 06:30 - Subjective Subjective: General Surgery Note for Dr. Narvaez Patient seen and examined at bedside. No acute event overnight. Patient is s/p laparoscopic cholecystectomy POD#1. Patient states abdominal pain is controlled. Denies nausea/vomiting. She is tolerating diet. Patient has no complaint this morning. Objective - Vital Signs/Intake and Output Vital Signs (last 24 hours): Temp Pulse Resp BP Pulse Ox 98.4 F 86 18 127/84 99 01/14/18 03:43 01/14/18 03:43 01/14/18 03:43 01/14/18 03:43 01/14/18 03:43 - Medications Medications: Current Medications Hydromorphone HCl (Dilaudid) 0.5 mg IVP Q3 PRN PRN Reason: Pain, severe (8-10) Lactated Ringer's (Lactated Ringer's) 1,000 mls @ 125 mls/hr IV .Q8H [facility] Lactated Ringer's (Lactated Ringer's) 1,000 mls @ 100 mls/hr IV .Q10H [facility] Ondansetron HCl (Zofran Odt) 8 mg PO Q8H PRN PRN Reason: Nausea/Vomiting Oxycodone/Acetaminophen (Percocet 5/325 Mg Tab) 1 tab PO Q4 PRN PRN Reason: Pain, moderate (4-7) Stop: 01/16/18 13:58 Pantoprazole Sodium (Protonix Inj) 40 mg IVP DAILY [facility] Last Admin: 01/13/18 10:09 Dose: 40 mg - Labs Labs: 01/13/18 08:00 01/13/18 08:00 PT 12.7 Seconds (9.8-13.1) 01/12/18 08:29 INR 1.1 (0.9-1.2) 01/12/18 08:29 APTT 29.7 Seconds (25.6-37.1) 01/12/18 08:29 - Constitutional Appears: No Acute Distress - Head Exam Head Exam: ATRAUMATIC, NORMOCEPHALIC - Eye Exam Eye Exam: Normal appearance - ENT Exam ENT Exam: Mucous Membranes Moist - Respiratory Exam Respiratory Exam: NORMAL BREATHING PATTERN - Cardiovascular Exam Cardiovascular Exam: REGULAR RHYTHM - GI/Abdominal Exam GI & Abdominal Exam: Soft. absent: Distended, Firm, Guarding, Tenderness Additional comments: incisions clean dry and intact - Extremities Exam Extremities Exam: Normal Capillary Refill - Neurological Exam Neurological Exam: Alert, Awake, Oriented x3 - Psychiatric Exam Psychiatric exam: Normal Affect, Normal Mood - Skin Skin Exam: Dry, Intact, Normal Color, Warm Assessment and Plan - Assessment and Plan (Free Text) Plan: 27 F s/p Laparoscopic Cholecystectomy POD#1 -Regular diet -f/u AM labs -Patient may be discharged pending labs -f/u with Dr. Narvaez within 1-2 weeks after discharge -Discussed with Dr. Brice Deleon PGY1
[2018-01-14 09:50] LABS: ALB/GLOB RATIO 0.9 (1.0-2.1); ALBUMIN 3.6 g/dL (3.5-5.0); ALT/SGPT 292 U/L (9-52); AST/SGOT 256 U/L (14-36); BLOOD UREA NITROGEN 7 mg/dl (7-17); CALCIUM 9.4 mg/dL (8.4-10.2); GFR AFRICAN-AMERICAN > 60; GFR NON-AFRICAN AMERICAN > 60
--- NOTE | 2018-01-14 12:40 | CP.PCM.CON ---
History of Present Illness - History of Present Illness History of Present Illness: This is a 27 yr old obese F with PMH of YOANA, psoriaisis, depression/ anxiety presents to [facility] for complaint of RUQ pain s/p laprascopic cholecystitis. POD 1 bilirubin and LFT uptrending. No fever, chills, nausea, vomiting, diarrhea, constipation. No past history of alcohol or IVDA or hepatitis. Review of Systems - Review of Systems Review of Systems: 12 point ROS unremarkable except that documented in HPI Past Patient History - Past Medical History & Family History Past Medical History?: Yes - Past Social History Alcohol: Occasional Drugs: Denies - CARDIAC Hx Hypertension: No - PULMONARY Hx Sleep Apnea: Yes - NEUROLOGICAL Hx Neurological Disorder: No - HEENT Other/Comment: Use Eyeglasses for reading - RENAL Hx Chronic Kidney Disease: No - ENDOCRINE/METABOLIC Hx Endocrine Disorders: Yes (thyroid issue, no meds) - HEMATOLOGICAL/ONCOLOGICAL Hx Blood Disorders: No - INTEGUMENTARY Hx Psoriasis: Yes - MUSCULOSKELETAL/RHEUMATOLOGICAL Hx Musculoskeletal Disorders: No Hx Falls: No - GASTROINTESTINAL Hx Gastrointestinal Disorders: No - GENITOURINARY/GYNECOLOGICAL Hx Genitourinary Disorders: No - PSYCHIATRIC Hx Depression: No - SURGICAL HISTORY Hx Surgeries: Yes (lipoma removal from head) Other/Comment: Removal of cyst on the tailbone X2 - ANESTHESIA Hx Anesthesia: Yes Meds Allergies/Adverse Reactions: Allergies Allergy/AdvReac Type Severity Reaction Status Date / Time No Known Allergies Allergy Verified 06/14/17 07:25 - Medications Medications: Current Medications Hydromorphone HCl (Dilaudid) 0.5 mg IVP Q3 PRN PRN Reason: Pain, severe (8-10) Lactated Ringer's (Lactated Ringer's) 1,000 mls @ 100 mls/hr IV .Q10H [facility] Lactated Ringer's (Lactated Ringer's) 1,000 mls @ 150 mls/hr IV .Q6H40M [facility] Ondansetron HCl (Zofran Odt) 8 mg PO Q8H PRN PRN Reason: Nausea/Vomiting Oxycodone/Acetaminophen (Percocet 5/325 Mg Tab) 1 tab PO Q4 PRN PRN Reason: Pain, moderate (4-7) Stop: 01/16/18 13:58 Pantoprazole Sodium (Protonix Inj) 40 mg IVP DAILY [facility] Last Admin: 01/14/18 08:27 Dose: 40 mg Physical Exam - Constitutional Appears: Well - Head Exam Head Exam: ATRAUMATIC, NORMAL INSPECTION, NORMOCEPHALIC - Eye Exam Eye Exam: EOMI, Normal appearance, PERRL - ENT Exam ENT Exam: Mucous Membranes Moist, Normal Exam - Respiratory Exam Respiratory Exam: Clear to Auscultation Bilateral, NORMAL BREATHING PATTERN - Cardiovascular Exam Cardiovascular Exam: REGULAR RHYTHM, RRR, +S1, +S2 - GI/Abdominal Exam GI & Abdominal Exam: Normal Bowel Sounds, Soft. absent: Tenderness - Neurological Exam Neurological exam: Alert, CN II-XII Intact, Normal Gait, Oriented x3, Reflexes Normal - Psychiatric Exam Psychiatric exam: Normal Affect, Normal Mood - Skin Skin Exam: Dry, Intact, Normal Color, Warm Results - Vital Signs Recent Vital Signs: Last Vital Signs Temp 98.4 F 01/14/18 08:17 Pulse 71 01/14/18 08:17 Resp 20 01/14/18 08:17 BP 135/89 01/14/18 08:17 Pulse Ox 100 01/14/18 08:17 - Labs Result Diagrams: 01/13/18 08:00 01/14/18 09:05 Labs: Laboratory Results - last 24 hr 01/14/18 09:05 Sodium 144 Potassium 4.6 Chloride 102 Carbon Dioxide 29 Anion Gap 18 BUN 7 Creatinine 0.9 Est GFR ( Amer) > 60 Est GFR (Non-Af Amer) > 60 Random Glucose 113 H Calcium 9.4 Total Bilirubin 5.2 H AST 256 H ALT 292 H Alkaline Phosphatase 240 H Total Protein 7.7 Albumin 3.6 Globulin 4.1 H Albumin/Globulin Ratio 0.9 L Assessment & Plan - Assessment and Plan (Free Text) Assessment: 27 yr old obese F with RUQ pain and acute cholecystitis s/p laprascopic cholecystectomy with uptrending LFT. Plan for EUS with ERCP tomorrow Plan: - NPO past midnight - Trend daily LFT - EUS with ERCP in am for potential choledocholithiasis - Discussed with the team
[2018-01-14] MEDS: Lactated Ringer's 1,000 ML IV SCH ×2 (12:49)
--- NOTE | 2018-01-14 21:25 | CP.PCM.PN ---
Subjective - Date & Time of Evaluation Date of Evaluation: 01/14/18 Time of Evaluation: 18:00 - Subjective Subjective: Abdominal pain is better, pain medication helping. Tolerating diet. Denies nausea, vomiting, fever or chills Objective - Vital Signs/Intake and Output Vital Signs (last 24 hours): Temp Pulse Resp BP Pulse Ox 98 F 72 18 138/91 H 100 01/14/18 17:00 01/14/18 17:00 01/14/18 17:00 01/14/18 17:00 01/14/18 17:00 - Medications Medications: Current Medications Hydromorphone HCl (Dilaudid) 0.5 mg IVP Q3 PRN PRN Reason: Pain, severe (8-10) Lactated Ringer's (Lactated Ringer's) 1,000 mls @ 100 mls/hr IV .Q10H [facility] Last Admin: 01/14/18 12:49 Dose: Not Given Lactated Ringer's (Lactated Ringer's) 1,000 mls @ 150 mls/hr IV .Q6H40M [facility] Last Admin: 01/14/18 12:49 Dose: 150 mls/hr Ondansetron HCl (Zofran Odt) 8 mg PO Q8H PRN PRN Reason: Nausea/Vomiting Oxycodone/Acetaminophen (Percocet 5/325 Mg Tab) 1 tab PO Q4 PRN PRN Reason: Pain, moderate (4-7) Stop: 01/16/18 13:58 Pantoprazole Sodium (Protonix Inj) 40 mg IVP DAILY [facility] Last Admin: 01/14/18 08:27 Dose: 40 mg - Labs Labs: 01/13/18 08:00 01/14/18 09:05 PT 12.7 Seconds (9.8-13.1) 01/12/18 08:29 INR 1.1 (0.9-1.2) 01/12/18 08:29 APTT 29.7 Seconds (25.6-37.1) 01/12/18 08:29 - Constitutional Appears: Well, No Acute Distress - Head Exam Head Exam: ATRAUMATIC - Respiratory Exam Respiratory Exam: Clear to Ausculation Bilateral, NORMAL BREATHING PATTERN - Cardiovascular Exam Cardiovascular Exam: REGULAR RHYTHM, +S1, +S2 - GI/Abdominal Exam GI & Abdominal Exam: Soft, Tenderness (slight), Normal Bowel Sounds - Neurological Exam Neurological Exam: Alert, Oriented x3 - Psychiatric Exam Psychiatric exam: Normal Affect, Normal Mood - Skin Skin Exam: Normal Color, Warm Assessment and Plan (1) Acute cholecystitis Assessment & Plan: R/O Choledocholithiasis Status: Acute - Assessment and Plan (Free Text) Assessment: 27 year old s/p lap dee dee, POD #1 Plan: Elevation in LFTs GI consulted and Going for ERCP tomorrow NPO past Midnight Sx Following the patient Encourage oob to ambulate Continue rest of treatment
[2018-01-14 21:30] LABS: HEPATITIS B SURFACE AG Negative (NEGATIVE)
[2018-01-14 21:36] LABS: HEPATITIS A IGM NEGATIVE (NEGATIVE); HEPATITIS B CORE AB NEGATIVE (NEGATIVE)
[2018-01-14 21:48] LABS: HEPATITIS C ANTIBODY NEGATIVE (NEGATIVE)
[2018-01-15] MEDS: Lactated Ringer's 1,000 ML IV SCH ×2 (03:12→06:31)
[2018-01-15 07:05] LABS: ALB/GLOB RATIO 0.8 (1.0-2.1); ALBUMIN 3.6 g/dL (3.5-5.0); ALT/SGPT 286 U/L (9-52); AST/SGOT 226 U/L (14-36); BLOOD UREA NITROGEN 6 mg/dl (7-17); CALCIUM 9.2 mg/dL (8.4-10.2); GFR AFRICAN-AMERICAN > 60; GFR NON-AFRICAN AMERICAN > 60
--- NOTE | 2018-01-15 12:23 | CP.PCM.PN ---
Subjective - Date & Time of Evaluation Date of Evaluation: 01/15/18 Time of Evaluation: 12:21 - Subjective Subjective: SURGERY NOTE FOR DR. INIGUEZ 27F currently at [facility] for EUS/ ERCP. Objective - Vital Signs/Intake and Output Vital Signs (last 24 hours): Temp Pulse Resp BP Pulse Ox 98.1 F 73 20 133/85 99 01/15/18 09:00 01/15/18 09:00 01/15/18 09:00 01/15/18 09:00 01/15/18 09:00 - Medications Medications: Current Medications Hydromorphone HCl (Dilaudid) 0.5 mg IVP Q3 PRN PRN Reason: Pain, severe (8-10) Lactated Ringer's (Lactated Ringer's) 1,000 mls @ 100 mls/hr IV .Q10H [facility] Last Admin: 01/15/18 06:31 Dose: Not Given Lactated Ringer's (Lactated Ringer's) 1,000 mls @ 150 mls/hr IV .Q6H40M [facility] Last Admin: 01/15/18 03:12 Dose: 150 mls/hr Ondansetron HCl (Zofran Odt) 8 mg PO Q8H PRN PRN Reason: Nausea/Vomiting Oxycodone/Acetaminophen (Percocet 5/325 Mg Tab) 1 tab PO Q4 PRN PRN Reason: Pain, moderate (4-7) Stop: 01/16/18 13:58 Pantoprazole Sodium (Protonix Inj) 40 mg IVP DAILY [facility] Last Admin: 01/15/18 09:07 Dose: 40 mg - Labs Labs: 01/13/18 08:00 01/15/18 05:30 PT 12.7 Seconds (9.8-13.1) 01/12/18 08:29 INR 1.1 (0.9-1.2) 01/12/18 08:29 APTT 29.7 Seconds (25.6-37.1) 01/12/18 08:29 Assessment and Plan - Assessment and Plan (Free Text) Assessment: 27 S/P Laparoscopic cholecystectomy POD#2 with elevated in T/bili post op. Plan: - EUS/ERCP Further recs discuss with Dr. Brice De Leon, PGY2
[2018-01-15] MEDS ORDERED: Lactated Ringer's 500 ML IV SCH ×2 (14:00→14:15)
--- NOTE | 2018-01-15 20:06 | CP.PCM.PN ---
Subjective - Date & Time of Evaluation Date of Evaluation: 01/15/18 Time of Evaluation: 19:15 - Subjective Subjective: Feeling a little tired. Had ERCP today. Tolerated diet. Denies N/V Objective - Vital Signs/Intake and Output Vital Signs (last 24 hours): Temp Pulse Resp BP Pulse Ox 97.7 F 71 18 145/101 H 98 01/15/18 16:37 01/15/18 16:37 01/15/18 16:37 01/15/18 16:37 01/15/18 16:37 - Medications Medications: Current Medications Hydromorphone HCl (Dilaudid) 0.5 mg IVP Q3 PRN PRN Reason: Pain, severe (8-10) Lactated Ringer's (Lactated Ringer's) 1,000 mls @ 100 mls/hr IV .Q10H [facility] Last Admin: 01/15/18 06:31 Dose: Not Given Lactated Ringer's (Lactated Ringer's) 1,000 mls @ 150 mls/hr IV .Q6H40M [facility] Last Admin: 01/15/18 03:12 Dose: 150 mls/hr Lactated Ringer's (Lactated Ringer's 500ml) 500 mls @ 75 mls/hr IV .Q6H40M [facility] Lactated Ringer's (Lactated Ringer's 500ml) 500 mls @ 75 mls/hr IV .Q6H40M [facility] Ondansetron HCl (Zofran Odt) 8 mg PO Q8H PRN PRN Reason: Nausea/Vomiting Oxycodone/Acetaminophen (Percocet 5/325 Mg Tab) 1 tab PO Q4 PRN PRN Reason: Pain, moderate (4-7) Stop: 01/16/18 13:58 Pantoprazole Sodium (Protonix Inj) 40 mg IVP DAILY [facility] Last Admin: 01/15/18 09:07 Dose: 40 mg - Labs Labs: 01/13/18 08:00 01/15/18 05:30 PT 12.7 Seconds (9.8-13.1) 01/12/18 08:29 INR 1.1 (0.9-1.2) 01/12/18 08:29 APTT 29.7 Seconds (25.6-37.1) 01/12/18 08:29 - Constitutional Appears: Well, No Acute Distress - Head Exam Head Exam: ATRAUMATIC, NORMOCEPHALIC - Respiratory Exam Respiratory Exam: Clear to Ausculation Bilateral, NORMAL BREATHING PATTERN - Cardiovascular Exam Cardiovascular Exam: REGULAR RHYTHM, +S1, +S2 - GI/Abdominal Exam GI & Abdominal Exam: Soft, Normal Bowel Sounds - Neurological Exam Neurological Exam: Alert, Oriented x3 - Psychiatric Exam Psychiatric exam: Normal Affect, Normal Mood - Skin Skin Exam: Normal Color, Warm Assessment and Plan (1) Acute cholecystitis Assessment & Plan: S/p lap dee dee POD # 2 Had ERCP today at [facility], CBD stone extracted Trend labs Tolerating diet If continues to improve, will d/c in am Status: Acute
[2018-01-15 23:56] VITALS: PULSE 88
[2018-01-16 08:02] LABS: ALB/GLOB RATIO 0.8 (1.0-2.1); ALBUMIN 3.5 g/dL (3.5-5.0); ALT/SGPT 253 U/L (9-52); AST/SGOT 134 U/L (14-36); BLOOD UREA NITROGEN 8 mg/dl (7-17); CALCIUM 9.2 mg/dL (8.4-10.2); GFR AFRICAN-AMERICAN > 60; GFR NON-AFRICAN AMERICAN > 60
--- NOTE | 2018-01-16 08:09 | CP.PCM.PN ---
Subjective - Date & Time of Evaluation Date of Evaluation: 01/16/18 Time of Evaluation: 07:50 - Subjective Subjective: General Surgery Progress Note- Dr. Narvaez 27 y.o female seen and evaluated at bedside for s/p POD#3 Laparoscopic Cholecystectomy. Patient is seen resting comfortably in bed, in NAD, and AA0x3. Patient denies acute overnight events. Patient reports that she is doing well. Tolerating regular diet well. No problems with bowel movements or urinary problems. No new complaints. No complaints of pain. Denies nausea, fever, shortness of breath, chest pain, or chills Objective - Vital Signs/Intake and Output Vital Signs (last 24 hours): Temp Pulse Resp BP Pulse Ox 98.6 F 88 18 111/74 98 01/15/18 23:56 01/15/18 23:56 01/15/18 23:56 01/15/18 23:56 01/15/18 23:56 - Medications Medications: Current Medications Hydromorphone HCl (Dilaudid) 0.5 mg IVP Q3 PRN PRN Reason: Pain, severe (8-10) Lactated Ringer's (Lactated Ringer's) 1,000 mls @ 100 mls/hr IV .Q10H [facility] Last Admin: 01/15/18 06:31 Dose: Not Given Lactated Ringer's (Lactated Ringer's) 1,000 mls @ 150 mls/hr IV .Q6H40M [facility] Last Admin: 01/15/18 03:12 Dose: 150 mls/hr Lactated Ringer's (Lactated Ringer's 500ml) 500 mls @ 75 mls/hr IV .Q6H40M [facility] Lactated Ringer's (Lactated Ringer's 500ml) 500 mls @ 75 mls/hr IV .Q6H40M [facility] Ondansetron HCl (Zofran Odt) 8 mg PO Q8H PRN PRN Reason: Nausea/Vomiting Oxycodone/Acetaminophen (Percocet 5/325 Mg Tab) 1 tab PO Q4 PRN PRN Reason: Pain, moderate (4-7) Stop: 01/16/18 13:58 Pantoprazole Sodium (Protonix Inj) 40 mg IVP DAILY [facility] Last Admin: 01/15/18 09:07 Dose: 40 mg - Labs Labs: 01/13/18 08:00 04/05/18 05:30 PT 12.7 Seconds (9.8-13.1) 01/12/18 08:29 INR 1.1 (0.9-1.2) 01/12/18 08:29 APTT 29.7 Seconds (25.6-37.1) 01/12/18 08:29 - Constitutional Appears: Well, Non-toxic, No Acute Distress - Neck Exam Neck Exam: Normal Inspection - Respiratory Exam Respiratory Exam: NORMAL BREATHING PATTERN - GI/Abdominal Exam Additional comments: Soft. absent: Distended, Firm, Guarding, Tenderness Incisions clean dry and intact, no clinical signs of infection Assessment and Plan - Assessment and Plan (Free Text) Assessment: 27 F s/p Laparoscopic Cholecystectomy POD#3 Plan: -Regular diet -Patient stable per general surgery standpoint -F/U with Dr. Narvaez within 1-2 weeks after discharge -Discussed with Dr. Narvaez
[2018-01-16 09:09] VITALS: BP 137/79; RESP 20; TEMP 97.6
[2018-01-16] MEDS: Lactated Ringer's 1,000 ML IV SCH ×2 (11:33)
--- NOTE | 2018-01-16 13:23 | CP.PCM.PN ---
Subjective - Date & Time of Evaluation Date of Evaluation: 01/16/18 Time of Evaluation: 12:00 - Subjective Subjective: Patient seen at bedside. Doing well post CCY and ERCP. No complains today Objective - Vital Signs/Intake and Output Vital Signs (last 24 hours): Temp Pulse Resp BP Pulse Ox 97.6 F 88 20 137/79 100 01/16/18 09:07 01/16/18 09:07 01/16/18 09:07 01/16/18 09:07 01/16/18 09:07 - Medications Medications: Current Medications Hydromorphone HCl (Dilaudid) 0.5 mg IVP Q3 PRN PRN Reason: Pain, severe (8-10) Lactated Ringer's (Lactated Ringer's) 1,000 mls @ 100 mls/hr IV .Q10H [facility] Last Admin: 01/16/18 11:33 Dose: Not Given Lactated Ringer's (Lactated Ringer's) 1,000 mls @ 150 mls/hr IV .Q6H40M [facility] Last Admin: 01/16/18 11:33 Dose: Not Given Lactated Ringer's (Lactated Ringer's 500ml) 500 mls @ 75 mls/hr IV .Q6H40M [facility] Last Admin: 01/16/18 11:34 Dose: Not Given Lactated Ringer's (Lactated Ringer's 500ml) 500 mls @ 75 mls/hr IV .Q6H40M [facility] Ondansetron HCl (Zofran Odt) 8 mg PO Q8H PRN PRN Reason: Nausea/Vomiting Oxycodone/Acetaminophen (Percocet 5/325 Mg Tab) 1 tab PO Q4 PRN PRN Reason: Pain, moderate (4-7) Stop: 01/16/18 13:58 Pantoprazole Sodium (Protonix Inj) 40 mg IVP DAILY [facility] Last Admin: 01/15/18 09:07 Dose: 40 mg - Labs Labs: 01/13/18 08:00 01/16/18 05:30 PT 12.7 Seconds (9.8-13.1) 01/12/18 08:29 INR 1.1 (0.9-1.2) 01/12/18 08:29 APTT 29.7 Seconds (25.6-37.1) 01/12/18 08:29 - Constitutional Appears: Well, Non-toxic, No Acute Distress - Head Exam Head Exam: ATRAUMATIC, NORMAL INSPECTION, NORMOCEPHALIC - Eye Exam Eye Exam: EOMI, Normal appearance, PERRL - ENT Exam ENT Exam: Mucous Membranes Moist, Normal Exam - Neck Exam Neck Exam: Full ROM, Normal Inspection. absent: Lymphadenopathy - Respiratory Exam Respiratory Exam: Clear to Ausculation Bilateral, NORMAL BREATHING PATTERN - Cardiovascular Exam Cardiovascular Exam: REGULAR RHYTHM, RRR, Rubs, +S1, +S2 - GI/Abdominal Exam GI & Abdominal Exam: Distended, Soft, Normal Bowel Sounds. absent: Tenderness - Neurological Exam Neurological Exam: Alert, Awake, Oriented x3 - Psychiatric Exam Psychiatric exam: Normal Affect, Normal Mood - Skin Skin Exam: Dry, Intact, Normal Color, Warm Assessment and Plan - Assessment and Plan (Free Text) Assessment: 27 yr old F s/p CCY for cholecystitis s/p ERCP with sphincterotomy and stone extraction with downtrending LFT. No complains. Doing well Plan: - Advance diet as tolerated - Follow up with the surgeon - No other GI intervention required - No s/s of pancreatitis - Will sign off now - Thank you for letting us participate in the care of this patient
--- NOTE | 2018-01-16 23:01 | CP.PCM.DIS ---
Provider - Provider Date of Admission: 01/13/18 12:30 Attending physician: Fátima Stratton MD Time Spent in preparation of Discharge (in minutes): 35 Diagnosis - Discharge Diagnosis (1) Acute cholecystitis Status: Acute Hospital Course - Lab Results Lab Results: Micro Results 01/11/18 11:00 Urine,Clean Catch Urine Culture - Final Corynebacterium Species Most Recent Lab Values WBC 5.2 K/uL (4.8-10.8) 01/13/18 08:00 RBC 4.34 Mil/uL (3.80-5.20) 01/13/18 08:00 Hgb 13.4 g/dL (12.0-16.0) 01/13/18 08:00 Hct 38.9 % (34.0-47.0) 01/13/18 08:00 MCV 89.7 fl (81.0-99.0) 01/13/18 08:00 MCH 31.0 pg (27.0-31.0) 01/13/18 08:00 MCHC 34.5 g/dL (33.0-37.0) 01/13/18 08:00 RDW 11.4 % (11.5-14.5) L 01/13/18 08:00 Plt Count 278 K/uL (130-400) 01/13/18 08:00 MPV 8.3 fl (7.2-11.7) 01/13/18 08:00 Neut % (Auto) 67.7 % (50.0-75.0) 01/13/18 08:00 Lymph % (Auto) 22.6 % (20.0-40.0) 01/13/18 08:00 [place] % (Auto) 8.2 % (0.0-10.0) 01/13/18 08:00 Eos % (Auto) 0.8 % (0.0-4.0) 01/13/18 08:00 Baso % (Auto) 0.7 % (0.0-2.0) 01/13/18 08:00 Neut # (Auto) 3.5 K/uL (1.8-7.0) 01/13/18 08:00 Lymph # (Auto) 1.2 K/uL (1.0-4.3) 01/13/18 08:00 [place] # (Auto) 0.4 K/uL (0.0-0.8) 01/13/18 08:00 Eos # (Auto) 0.0 K/uL (0.0-0.7) 01/13/18 08:00 Baso # (Auto) 0.0 K/uL (0.0-0.2) 01/13/18 08:00 PT 12.7 Seconds (9.8-13.1) 01/12/18 08:29 INR 1.1 (0.9-1.2) 01/12/18 08:29 APTT 29.7 Seconds (25.6-37.1) 01/12/18 08:29 D-Dimer, Quantitative 247 ng/mlDDU (0-230) H 01/11/18 03:00 Sodium 142 mmol/l (132-148) 01/16/18 05:30 Potassium 4.1 MMOL/L (3.6-5.0) 01/16/18 05:30 Chloride 103 mmol/L (98-107) 01/16/18 05:30 Carbon Dioxide 27 mmol/L (22-30) 01/16/18 05:30 Anion Gap 16 (10-20) 01/16/18 05:30 BUN 8 mg/dl (7-17) 01/16/18 05:30 Creatinine 0.8 mg/dl (0.7-1.2) 01/16/18 05:30 Est GFR ( Amer) > 60 01/16/18 05:30 Est GFR (Non-Af Amer) > 60 01/16/18 05:30 Random Glucose 95 mg/dL (65-105) 01/16/18 05:30 Calcium 9.2 mg/dL (8.4-10.2) 01/16/18 05:30 Phosphorus 3.1 mg/dl (2.5-4.5) 01/11/18 03:00 Magnesium 1.8 MG/DL (1.6-2.3) 01/11/18 03:00 Total Bilirubin 1.8 mg/dl (0.2-1.3) H 01/16/18 05:30 Direct Bilirubin 3.8 mg/ml (0.0-0.4) H 01/14/18 13:52 AST 134 U/L (14-36) H D 01/16/18 05:30 ALT 253 U/L (9-52) H 01/16/18 05:30 Alkaline Phosphatase 244 U/L (38-126) H 01/16/18 05:30 Total Protein 7.7 G/DL (6.3-8.2) 01/16/18 05:30 Albumin 3.5 g/dL (3.5-5.0) 01/16/18 05:30 Globulin 4.2 gm/dL (2.2-3.9) H 01/16/18 05:30 Albumin/Globulin Ratio 0.8 (1.0-2.1) L 01/16/18 05:30 Urine Color Yellow (YELLOW) 01/11/18 06:17 Urine Clarity Slighty-cloudy (Clear) 01/11/18 06:17 Urine pH 6.0 (5.0-8.0) 01/11/18 06:17 Ur Specific [place] 1.028 (1.003-1.030) 01/11/18 06:17 Urine Protein 30 mg/dL (NEGATIVE) 01/11/18 06:17 Urine Glucose (UA) Neg mg/dL (Normal) 01/11/18 06:17 Urine Ketones Negative mg/dL (NEGATIVE) 01/11/18 06:17 Urine Blood Small (NEGATIVE) 01/11/18 06:17 Urine Nitrate Negative (NEGATIVE) 01/11/18 06:17 Urine Bilirubin Negative (NEGATIVE) 01/11/18 06:17 Urine Urobilinogen 0.2-1.0 mg/dL (0.2-1.0) 01/11/18 06:17 Ur Leukocyte Esterase Neg Stephane/uL (Negative) 01/11/18 06:17 Urine RBC (Auto) 5 /hpf (0-3) H 01/11/18 06:17 Urine Microscopic WBC 6 /hpf (0-5) H 01/11/18 06:17 Ur Squamous Epith Cells 3 /hpf (0-5) 01/11/18 06:17 Urine Bacteria Rare (<OCC) 01/11/18 06:17 Urine HCG, Qual Negative (NEGATIVE) 01/14/18 19:10 Urine Opiates Screen Negative (NEGATIVE) 01/11/18 03:00 Urine Methadone Screen Negative (NEGATIVE) 01/11/18 03:00 Ur Barbiturates Screen Negative (NEGATIVE) 01/11/18 03:00 Ur Phencyclidine Scrn Negative (NEGATIVE) 01/11/18 03:00 Ur Amphetamines Screen Negative (NEGATIVE) 01/11/18 03:00 U Benzodiazepines Scrn Negative (NEGATIVE) 01/11/18 03:00 U Oth Cocaine Metabols Negative (NEGATIVE) 01/11/18 03:00 U Cannabinoids Screen Negative (NEGATIVE) 01/11/18 03:00 Alcohol, Quantitative < 10 mg/dl (0-10) 01/11/18 03:00 IgG 1353.0 mg/dL (700.0-1600.0) 01/14/18 13:52 JJ Screen Negative (Negative) 01/14/18 13:52 JJ Titer TEST NOT PERFORMED 01/14/18 13:52 JJ Titer 2 TEST NOT PERFORMED 01/14/18 13:52 JJ Pattern TEST NOT PERFORMED 01/14/18 13:52 JJ Pattern 2 TEST NOT PERFORMED 01/14/18 13:52 Anti-Mitochondrial Ab Negative (Negative) 01/14/18 13:52 Hepatitis A IgM Ab Negative (NEGATIVE) 01/14/18 18:19 Hep Bs Antigen Negative (NEGATIVE) 01/14/18 18:19 Hep B Core IgM Ab Negative (NEGATIVE) 01/14/18 18:19 Hepatitis C Antibody Negative (NEGATIVE) 01/14/18 18:19 - Hospital Course Hospital Course: 27 year old female who was admitted with RUQ pain, noted to have acute cholecystitis. The patient underwent a laparoscopic cholecystectomy. After surgery, the pt continued to have elevation in total bilirubin and LFTs. The patient subsequently had ERCP yesterday with stone extraction. There is a downward trending in T-bili and LFTs today. The patient is doing well and was discharged home with outpatient f/u instructions Discharge Exam - Head Exam Head Exam: ATRAUMATIC, NORMOCEPHALIC - Respiratory Exam Respiratory Exam: Clear to PA & Lateral, NORMAL BREATHING PATTERN - Cardiovascular Exam Cardiovascular Exam: REGULAR RHYTHM, +S1, +S2 - GI/Abdominal Exam GI & Abdominal Exam: Normal Bowel Sounds, Soft - Neurological Exam Neurological exam: Alert, Oriented x3 - Psychiatric Exam Psychiatric exam: Normal Affect, Normal Mood - Skin Skin Exam: Normal Color, Warm Discharge Plan - Discharge Medications Prescriptions: oxyCODONE/Acetaminophen [Percocet 5/325 mg Tab] 1 tab PO Q4 PRN #14 tab PRN Reason: Pain, Moderate (4-7) Pantoprazole Sodium [Protonix] 40 mg PO DAILY #14 ect - Follow Up Plan Condition: GOOD Disposition: HOME/ ROUTINE Instructions: Cholecystectomy, Laparoscopic Surgery, Gallstones (DC), Endoscopic Retrograde Cholangiopancreatography (DC) Additional Instructions: pt. cleared for discharge today by , and Rx for meds provided PMD: Dr. Toño Lynn follow up with Dr. Narvaez 1 week Referrals: Dirk Vaughn MD [Medical Doctor] - Sajan Narvaez MD [Staff Provider] -
[2018-01-18 20:05] VITALS: O2SAT 99
--- NOTE | 2018-01-24 11:25 | OP ---
PROCEDURE DATE: 01/13/2018 PREOPERATIVE DIAGNOSES: Acute on chronic cholecystitis and lithiasis. POSTOPERATIVE DIAGNOSES: Acute on chronic cholecystitis and lithiasis. OPERATION PERFORMED: Laparoscopic cholecystectomy and intraoperative cholangiogram. SURGEON: Sajan Narvaez MD ASSISTANTS: Dr. Miller Blanca and Dr. Clay Orellana ESTIMATED BLOOD LOSS: Minimal. DESCRIPTION OF PROCEDURE: In the operating room, the patient was identified by name, name of procedure, laterality, my ramiro. The abdomen was prepped with chlorhexidine after being clipped, after waiting for the prep to dry, the area was draped and after the successful time-out the operation proceeded. The supraumbilical incision was made through the skin and subcutaneous tissues. It was dissected down to the fascia. A Veress needle was inserted without issue and without delay. The Visiport was placed after the successful cannulation and it was placed without issue. A xiphoid 5 and two lateral 5s were placed. Drawing up in the fundus and infundibulum, the dissection was rather quick into the point. The cystic duct and artery were rapidly identified. Cystic duct was clipped on the gallbladder site, open cholangiogram obtained, which showed no stone. Cystic duct was then doubly clipped and divided as was the artery. This was done after the view of safety was achieved and the posterior dissection was . The cystic artery was doubly clipped, divided and the gallbladder taken off the liver bed. Identifying posterior artery that was clipped and cauterized. Gallbladder was removed after the liver bed placed into a bag and removed without issue. The abdomen was copiously irrigated and dried. There was nothing untoward, nothing bleeding, bile and the intestines were intact as was the stomach and duodenum. The CO2 was removed. The incisions were closed with Vicryl on a needle at the umbilicus and all the incisions were closed with Vicryl, subcuticular PDS and Dermabond. The patient was taken to recovery room in good condition after the sponge and needle counts were declared correct. Sajan Narvaez MD
== END 2018-01-16 14:50 | disposition home or self-care (01) | DRG 494 ==
LOC: H.ER 02:06 → H.ERHOLD 03:49 → UNDOADMIN 03:49 → H.ERHOLD 06:17 → H.MEDSURG1 11:06 → OBSVTOIN 01-13 12:30
PROVIDERS: ADMIT Internal Medicine; ATTEND Internal Medicine
PROC: BF03YZZ Plain Radiography of Gallbladder and Bile Ducts using Other Contrast (ICD-10-PCS; 2018-01-13)
PROC: 0FT44ZZ Resection of Gallbladder, Percutaneous Endoscopic Approach (ICD-10-PCS; principal; 2018-01-13 10:45)
PROC: 0FC98ZZ Extirpation of Matter from Common Bile Duct, Via Natural or Artificial Opening Endoscopic (ICD-10-PCS; 2018-01-15)
DX: K80.00 Calculus of gallbladder with acute cholecystitis without obstruction (principal); E66.9 Obesity, unspecified; Z68.41 Body mass index [BMI] 40.0-44.9, adult; G47.33 Obstructive sleep apnea (adult) (pediatric); L40.9 Psoriasis, unspecified; F41.9 Anxiety disorder, unspecified; Z85.72 Personal history of non-Hodgkin lymphomas

== ENCOUNTER 2018-07-15 01:49 | Emergency (ER) | payer MEDICAID ==
[2018-07-15 02:34] VITALS: BMI 43.1
[2018-07-15 02:37] VITALS: O2SAT 100
[2018-07-15] MEDS ORDERED: Alum-Mag Hydrox-Simethicone Susp (30 mL) PO STA (03:05)
[2018-07-15] MEDS ORDERED: Alum-Mag Hydrox-Simethicone Susp (30 mL) ONE (03:40)
--- NOTE | 2018-07-15 04:14 | ED PDOC ---
HPI: CCC, URI, Sore Throat Time Seen by Provider: 07/15/18 02:58 Chief Complaint (Nursing): ENT Problem History Per: Patient History/Exam Limitations: no limitations Onset/Duration Of Symptoms: Mins Additional Complaint(s): Patient was eating dry crackers and then felt throat pain, had pain with eating the rest of her dinner. Was able to drink normally. No vomiting, no throat closure sensation, able to tolerate liquids, no foreign body sensation. Past Medical History Reviewed: Historical Data, Nursing Documentation, Vital Signs Vital Signs: Last Vital Signs Temp 98.2 F 07/15/18 02:34 Pulse 77 07/15/18 02:34 Resp 18 07/15/18 02:34 BP 156/97 H 07/15/18 02:34 Pulse Ox 100 07/15/18 02:34 - Medical History PMH: Depression, Gall Bladder Disease, Sleep Apnea Denies: Colonic Polyps, Diabetes, HTN, Chronic Kidney Disease, Seizures, TIA - Surgical History Surgical History: Denies: Endoscopy - Family History Family History: States: Unknown Family Hx - Home Medications Home Medications: Ambulatory Orders Medication Instructions Recorded Pantoprazole Sodium [Protonix] 40 mg PO DAILY #14 ect 01/16/18 oxyCODONE/Acetaminophen [Percocet 1 tab PO Q4 PRN #14 tab 01/16/18 5/325 mg Tab] - Allergies Allergies/Adverse Reactions: Allergies Allergy/AdvReac Type Severity Reaction Status Date / Time No Known Allergies Allergy Verified 07/15/18 02:34 Review of Systems ROS Statement: Except As Marked, All Systems Reviewed And Found Negative Review Of Systems: ROS cannot be obtained secondary to pt's inabilty to answer questions. ENT: Positive for: Throat Pain Physical Exam - Reviewed Nursing Documentation Reviewed: Yes Vital Signs Reviewed: Yes - Physical Exam Appears: Positive for: Well, Non-toxic, No Acute Distress Head Exam: Positive for: ATRAUMATIC, NORMAL INSPECTION, NORMOCEPHALIC Skin: Positive for: Normal Color, Warm, DRY Eye Exam: Positive for: EOMI, Normal appearance, PERRL ENT: Positive for: Normal ENT Inspection, Pharynx Is (normal) Neck: Positive for: Normal, Painless ROM Cardiovascular/Chest: Positive for: Regular Rate, Rhythm Respiratory: Positive for: CNT, Normal Breath Sounds Gastrointestinal/Abdominal: Positive for: Normal Exam, Soft Back: Positive for: Normal Inspection Extremity: Positive for: Normal ROM Neurologic/Psych: Positive for: Alert, Oriented - ECG O2 Sat by Pulse Oximetry: 100 Pulse Ox Interpretation: Normal Medical Decision Making Medical Decision Making: Patient with likely abrasion to esophagus from hard food --Tolerating po, very well appearing --Recommended supportive care only Disposition - Clinical Impression Clinical Impression: Throat pain - Disposition Referrals: [facility] [Outside] Disposition: Routine/Home Disposition Time: 04:00 Condition: STABLE Instructions: Sore Throat in Adults Forms: [facility] (Samoan)
[2018-07-15 04:56] VITALS: BP 132/93; PULSE 69; RESP 16; TEMP 97.7
== END 2018-07-15 04:05 | disposition home or self-care (01) ==
LOC: H.ER 01:49
DX: J02.9 Acute pharyngitis, unspecified (principal)

== ENCOUNTER 2019-01-13 18:44 | Emergency (ER) | payer MEDICAID ==
[2019-01-13 18:44] VITALS: BMI 43.1
[2019-01-13 19:21] VITALS: PULSE 81; RESP 18; TEMP 98
[2019-01-13 20:57] LABS: BASO % 0.6 % (0.0-2.0); EOS % 0.4 % (0.0-4.0); HEMOGLOBIN 12.5 g/dL (12.0-16.0); LYMPH # 2.1 K/uL (1.0-4.3); LYMPH % 34.6 % (20.0-40.0); MEAN CELL VOLUME 88.4 fl (81.0-99.0); MEAN CORPUSCULAR HEMOGLOBIN 29.6 pg (27.0-31.0); MEAN CORPUSCULAR HGB CONC 33.4 g/dL (33.0-37.0); MONO # 0.5 K/uL (0.0-0.8); MONO % 8.4 % (0.0-10.0); NEUT # 3.4 K/uL (1.8-7.0); NRBC % 0.1 % (0.0-0.0); RBC 4.24 Mil/uL (3.80-5.20); RED CELL DISTRIBUTION WIDTH 12.9 % (11.5-14.5); WHITE BLOOD COUNT 6.1 K/uL (4.8-10.8)
[2019-01-13 21:05] LABS: SQUAMOUS EPITHIAL 16 /hpf (0-5); URINE BACTERIA RARE (<OCC); URINE BILIRUBIN NEGATIVE (NEGATIVE); URINE BLOOD MODERATE (NEGATIVE); URINE CLARITY CLOUDY (Clear); URINE COLOR YELLOW (YELLOW); URINE GLUCOSE (UA) NEG (NEGATIVE); URINE LEUKOCYTE ESTERASE NEG Leu/uL (Negative); URINE PROTEIN 100 mg/dL (NEGATIVE); URINE UROBILINOGEN 0.2-1.0 mg/dL (0.2-1.0)
[2019-01-13 21:12] LABS: ALT/SGPT 91 U/L (9-52); AST/SGOT 66 U/L (14-36); BLOOD UREA NITROGEN 14 mg/dl (7-17); CALCIUM 9.1 mg/dL (8.4-10.2); GFR NON-AFRICAN AMERICAN > 60; LIPASE 101 U/L (23-300)
--- NOTE | 2019-01-13 23:30 | ED PDOC ---
HPI: Abdomen Time Seen by Provider: 01/13/19 19:49 Chief Complaint (Nursing): Abdominal Pain Chief Complaint (Provider): Abdominal Pain History Per: Patient History/Exam Limitations: no limitations Onset/Duration Of Symptoms: Days (x 7) Current Symptoms Are (Timing): Still Present Location Of Pain/Discomfort: Epigastric Quality Of Discomfort: "Pain" Associated Symptoms: Diarrhea Alleviating Factors: OTC Meds (pepcid) Additional Complaint(s): 28 year old female with a medical history of "thyroid" and psoriasis presents to the ED for evaluation of diarrhea and epigastric abdominal pain for one week. Patient reports pain initially improved with Pepcid. However, symptoms returned today, prompting ED visit. She denies other complaints or associated symptoms. PMD: Dr. Toño Lynn Past Medical History Reviewed: Historical Data, Nursing Documentation, Vital Signs Vital Signs: Last Vital Signs Temp 98 F 01/13/19 19:19 Pulse 81 01/13/19 19:19 Resp 18 01/13/19 19:19 BP 132/74 01/13/19 19:19 Pulse Ox 99 01/13/19 19:19 - Medical History PMH: Depression, Gall Bladder Disease, Sleep Apnea Denies: Colonic Polyps, Diabetes, HTN, Chronic Kidney Disease, Seizures, TIA Other PMH: "thyroid" and psoriasis - Surgical History Surgical History: Cholecystectomy Denies: Endoscopy - Family History Family History: States: Unknown Family Hx - Home Medications Home Medications: Ambulatory Orders Medication Instructions Recorded Pantoprazole Sodium [Protonix] 40 mg PO DAILY #14 ect 01/16/18 oxyCODONE/Acetaminophen [Percocet 1 tab PO Q4 PRN #14 tab 01/16/18 5/325 mg Tab] Ranitidine HCl [Zantac 75] 75 mg PO DAILY #30 tablet 01/13/19 - Allergies Allergies/Adverse Reactions: Allergies Allergy/AdvReac Type Severity Reaction Status Date / Time No Known Allergies Allergy Verified 01/13/19 19:19 Review of Systems ROS Statement: Except As Marked, All Systems Reviewed And Found Negative Constitutional: Negative for: Fever, Chills Gastrointestinal: Positive for: Abdominal Pain (epigastric), Diarrhea. Negative for: Nausea, Vomiting Physical Exam - Reviewed Nursing Documentation Reviewed: Yes Vital Signs Reviewed: Yes - Physical Exam Appears: Positive for: No Acute Distress Head Exam: Positive for: ATRAUMATIC, NORMAL INSPECTION, NORMOCEPHALIC Skin: Positive for: Normal Color, Warm, Dry Eye Exam: Positive for: EOMI, Normal appearance, PERRL Neck: Positive for: Normal, Painless ROM, Supple Cardiovascular/Chest: Positive for: Regular Rate, Rhythm. Negative for: Murmur Respiratory: Positive for: Normal Breath Sounds. Negative for: Respiratory Distress Gastrointestinal/Abdominal: Positive for: Soft, Tenderness (mild epigastric). Negative for: Mass, Guarding, Rebound Back: Positive for: Normal Inspection. Negative for: L CVA Tenderness, R CVA Tenderness Extremity: Positive for: Normal ROM (x 4). Negative for: Deformity Neurological/Psych: Positive for: Awake, Alert, Normal Tone, Oriented (x 3). Negative for: Motor/Sensory Deficits - Laboratory Results Result Diagrams: 01/13/19 20:50 01/13/19 20:50 Lab Results: Total Bilirubin 0.4 mg/dl (0.2-1.3) 01/13/19 20:50 AST 66 U/L (14-36) H D 01/13/19 20:50 ALT 91 U/L (9-52) H D 01/13/19 20:50 Alkaline Phosphatase 91 U/L (38-126) 01/13/19 20:50 Total Protein 7.9 G/DL (6.3-8.2) 01/13/19 20:50 Albumin 4.0 g/dL (3.5-5.0) 01/13/19 20:50 Globulin 3.8 gm/dL (2.2-3.9) 01/13/19 20:50 Albumin/Globulin Ratio 1.0 (1.0-2.1) 01/13/19 20:50 Lipase 101 U/L (23-300) 01/13/19 20:50 Urine Color Yellow (YELLOW) 01/13/19 20:50 Urine Clarity Cloudy (Clear) 01/13/19 20:50 Urine pH 5.0 (5.0-8.0) 01/13/19 20:50 Ur Specific [place] 1.034 (1.003-1.030) H 01/13/19 20:50 Urine Protein 100 mg/dL (NEGATIVE) 01/13/19 20:50 Urine Glucose (UA) Neg mg/dL (NEGATIVE) 01/13/19 20:50 Urine Ketones Negative mg/dL (NEGATIVE) 01/13/19 20:50 Urine Blood Moderate (NEGATIVE) 01/13/19 20:50 Urine Nitrate Negative (NEGATIVE) 01/13/19 20:50 Urine Bilirubin Negative (NEGATIVE) 01/13/19 20:50 Urine Urobilinogen 0.2-1.0 mg/dL (0.2-1.0) 01/13/19 20:50 Ur Leukocyte Esterase Neg Stephane/uL (Negative) 01/13/19 20:50 Urine RBC (Auto) 13 /hpf (0-3) H 01/13/19 20:50 Urine Microscopic WBC 5 /hpf (0-5) 01/13/19 20:50 Ur Squamous Epith Cells 16 /hpf (0-5) H 01/13/19 20:50 Urine Bacteria Rare (<OCC) 01/13/19 20:50 - ECG O2 Sat by Pulse Oximetry: 99 (RA) Pulse Ox Interpretation: Normal Medical Decision Making Medical Decision Makin:03 MDM: workup for gastritis vs other abdominal pathologies Labs, UA, GI cocktail and IV fluids Reassess 23:15 Patient reports complete resolution of symptoms after GI cocktail and IV fluids. Labs show elevated LFTs. Patient is aware and will be discharged home. She has an appointment with her PMD on 02/05 and will discuss elevated liver tests. Return parameters provided. Scribe Attestation: Documented by Val Qiu, acting as a scribe Maite Correa MD Provider Scribe Attestation: All medical record entries made by the Scribe were at my direction and personally dictated by me. I have reviewed the chart and agree that the record accurately reflects my personal performance of the history, physical exam, medical decision making, and the department course for this patient. I have also personally directed, reviewed, and agree with the discharge instructions and disposition. Disposition - Clinical Impression Clinical Impression: Gastritis - Patient ED Disposition Is Patient to be Admitted: No - Disposition Disposition: Routine/Home Disposition Time: 23:15 Condition: IMPROVED Additional Instructions: Follow up with primary medical doctor as scheduled for February 05 to discuss elevated liver enzymes. Continue to take all home medications as prescribed in addition to the new medication for gastritis. Return to the emergency department if symptoms worsen or if new symptoms develop. Prescriptions: Ranitidine HCl [Zantac 75] 75 mg PO DAILY #30 tablet Instructions: Gastritis (DC) Forms: [facility] ([place]), [facility] ED School/Work Excuse Print Language: FAROESE
[2019-01-13 23:31] VITALS: BP 139/75; O2SAT 99
== END 2019-01-13 23:36 | disposition home or self-care (01) ==
LOC: H.ER 18:44
DX: K29.70 Gastritis, unspecified, without bleeding (principal)
CPT/HCPCS: 80053; 81003; 81025; 83690; 85025; 96374; 96375; 99283; C9113; J2405